=== PATIENT | male | born 1975 | race African-American/Black ===

== ENCOUNTER 2021-11-09 11:18 | Emergency (ER) | payer OTHER ==
[~2021-11-09] VITALS: Ht 172.7 cm; Wt 77.1 kg
[2021-11-09] MEDS ORDERED: CLINDAMYCIN PHOSPHATE IV 600 MG in IV DEXTROSE 5% 100 ML IV ONE ×2 (11:45→16:30)
[2021-11-09] MEDS ORDERED: IV NORMAL SALINE 1000 ML BAG IV ONE (11:45)
[2021-11-09] MEDS ORDERED: ACETAMINOPHEN ES 500 MG TABLET PO ONE (11:45)
[2021-11-09] MEDS ORDERED: IV NORMAL SALINE 250 ML IV ONE (11:57)
[2021-11-09] MEDS ORDERED: SWABABLE VALVE TRANSFER SET EA MC ONE (11:57)
[2021-11-09] MEDS ORDERED: IOHEXOL 350 100 ML INFUS..BTL ONE (11:57)
[2021-11-09 12:21] LABS: HEMATOCRIT 39.7 % (36.7-47.1); MEAN CORPUSCULAR VOLUME 90.9 fL (73.0-96.2); PLATELET COUNT (AUTO) 231 K/uL (152-348)
[2021-11-09 12:30] LABS: CREATININE 1.5 mg/dL (0.6-1.3); POTASSIUM 3.7 mmol/L (3.5-5.1)
[2021-11-09] MEDS ORDERED: ACETAMINOPHEN ES 500 MG TABLET ONE (12:40)
[2021-11-09] MEDS ORDERED: CLINDAMYCIN 600 MG PIGGYBACK**ER OMNI IV ONE ×2 (12:41→16:48)
[2021-11-09 12:44] LABS: BILIRUBIN,DIRECT 0.2 mg/dL (0.0-0.2); BILIRUBIN,TOTAL 0.9 mg/dL (0.2-1.0); TOTAL PROTEIN, SERUM 8.6 g/dL (6.4-8.2)
--- NOTE | 2021-11-09 13:44 | NUR ---
Patient's eye is swollen and red. He is febrile. Placed on a monitor.
--- NOTE | 2021-11-09 14:29 | NUR ---
Patient is napping, vital signs stable, on a desk monitor
[2021-11-09] MEDS ORDERED: IV NORMAL SALINE 100 ML BAG IV ONE ×2 (15:15)
[2021-11-09] MEDS ORDERED: CLIN300C12 PO ×2 (16:29→18:14)
[2021-11-09] MEDS ORDERED: IV NORMAL SALINE 500 ML BAG IV ONE (16:30)
--- NOTE | 2021-11-09 17:29 | NUR ---
Patient voided 750 cc of urine.
[2021-11-09] MEDS ORDERED: BICT1TAB PO (17:47)
--- NOTE | 2021-11-09 18:13 | NUR ---
DC , Rx AND FOLLOW UP INSTRUCTIONS GIVEN AND EXPLAINED TO PATIENT WHO STATES HE UNDERSTANDS ALL INSTRUCTIONS
[2021-11-09 18:18] VITALS: BP 136/79
== END 2021-11-09 18:09 | disposition home or self-care (01) ==
LOC: ER 11:18
DX: L03.211 Cellulitis of face (principal); Z20.822 Contact with and (suspected) exposure to COVID-19; R00.0 Tachycardia, unspecified
CPT/HCPCS: 80076; 80048; 85025; 84145; 85730; 87426; 87040 ×2; 36415; 93005; 71045; 70487; 99285; 96365; 96366; 83605; J3490 ×3; Q9967; J7040 ×2; A4663; A9150